=== PATIENT | male | born 1995 | race Two or more races ===

== ENCOUNTER 2021-04-18 04:52 | Emergency (ER) | payer OTHER, SELFPAY ==
--- NOTE | ~2021-04-18 | CT_ITS ---
EXAMINATION: CT ABDOMEN AND PELVIS WITH CONTRAST CLINICAL INFORMATION: Periumbilical pain. Rule out appendicitis. COMPARISON: None TECHNIQUE: Multidetector volumetric images were obtained from the superior aspect of the liver through the pubic symphysis following administration 85 mL of Omnipaque 350 intravenous contrast. Sagittal and coronal reformatted images were obtained on the technologist's workstation. Oral contrast: No This CT examination was performed using dose optimization techniques as appropriate, variously including the following: *Automated exposure control *Adjustment of mA and/or kV according to patient size (this includes techniques or standardized protocols for targeted exams where dose is matched to indication/reason for exam; i.e. extremities or head) *Use of iterative reconstruction technique DLP: 571 mGy-cm FINDINGS: Visualized lung bases are well aerated. The liver demonstrates normal size, contour and attenuation. 3 mm hypodense focus within the inferior right hepatic lobe is too small to accurately characterize. The gallbladder is normal in appearance. The pancreas, spleen and adrenal glands are unremarkable. Symmetrically enhancing kidneys. There is no hydronephrosis bilaterally. Debris-filled stomach. Normal caliber loops of small and large bowel. Normal appendix. Normal caliber abdominal aorta. No retroperitoneal lymphadenopathy. The bladder is well-distended and normal in appearance. The prostate gland is normal in size. No gross free pelvic fluid. No inguinal lymphadenopathy. No acute osseous abnormality. CT/CT abdomen pelvis w con IMPRESSION: No CT evidence for acute abnormality within the abdomen or pelvis. Specifically, the appendix is normal in appearance. Fleischner guidelines were followed.
[2021-04-18 04:55] VITALS: BP 112/78; PULSE 78; RESP 16; O2SAT 98; BMI 25.9
--- NOTE | 2021-04-18 05:02 | ED.ABDPAIN ---
HPI - Abdominal Pain General Chief Complaint: Abdominal Pain Stated Complaint: abd pain Time Seen by Provider: 04/18/21 05:00 Source: patient Mode of arrival: EMS History of Present Illness HPI narrative: 25-year-old male without significant past medical history presents via EMS for what he describes is upper abdominal pain that awoke him from sleep and then patient had 3 episodes of nonbloody vomiting and 1 episode of diarrhea. Patient states that the pain persisted and then ?became too much? prompting him to call EMS. He denies fevers, but describes chills. Patient states he is still having a significant amount of discomfort that he describes as burning. Related Data Previous Rx's Medication Instructions Recorded omeprazole 40 mg capsule,delayed 40 mg PO DAILY #30 cap 04/18/21 release Allergies Allergy/AdvReac Type Severity Reaction Status Date / Time No Known Allergies Allergy Verified 04/18/21 04:55 Review of Systems Review of Systems Pertinent positives and negatives as stated in HPI 10 point review of systems is otherwise negative. PMFSH Past Medical History Source: nursing notes reviewed Social History Social History Alcohol intake: never Patient Tobacco Use Status: Never used Tobacco Use of substances other than those prescribed or required for medical reasons: No Advance Directives: No Physical Exam ED Vital Signs: Vital Signs - 24 hr 04/18/21 04:55 04/18/21 05:09 04/18/21 06:00 Temperature 98 F Pulse Rate 78 74 66 Respiratory Rate 16 16 15 Blood Pressure 112/78 134/80 111/59 L Pulse Oximetry 98 96 99 04/18/21 07:08 Temperature 97.8 F Pulse Rate 72 Respiratory Rate 16 Blood Pressure 115/63 Pulse Oximetry 98 BMI result Body Mass Index 25.9 VITAL SIGNS: Reviewed. GENERAL: Well developed, well nourished, in mild distress. HEAD: Normocephalic/atraumatic EYES: PERRLA, EOMI OROPHARYNX: no oral lesions noted, posterior pharynx clear LUNGS: Normal breath sounds. No adventitious sounds or accessory muscle use. SpO2<98> CARDIOVASCULAR: Regular rate and rhythm without noted murmurs ABDOMEN: Soft, significant periumbilical tenderness as well as tenderness at right lower quadrant, non-distended with bowel sounds. MUSCULOSKELETAL: No tenderness, deformities, or effusions noted on gross inspection. EXTREMITIES: No cyanosis, clubbing or edema. SKIN: Inspection of the skin reveals no rashes NEUROLOGIC: Alert and oriented x 4. Strength and sensation to light touch were grossly intact x 4. Course Course Course Narrative: 25-year-old male with history and clinical presentation most suggestive of gastritis but possible appendicitis or pancreatitis. Review of all investigations otherwise negative for acute findings and patient had complete resolution of his symptoms by treating for gastritis/acid reflux. He was given all results and discharged home on a course of omeprazole as well as dietary changes. MDM - Abdominal Pain Lab Data Result diagrams: 04/18/21 05:08 04/18/21 05:08 Labs: Lab Results 04/18/21 04/18/21 Range/Units 05:08 05:08 WBC 9.2 (4.8-10.8) X10*3/uL RBC 5.43 (4.60-5.80) X10*6/uL Hgb 15.5 (14.0-18.0) g/dl Hct 43.7 (42.0-52.0) % MCV 80.5 (80.0-98.0) fL MCH 28.5 (27.0-33.0) pg MCHC 35.5 (31.0-36.0) g/dl RDW 12.1 (11.0-16.0) % Plt Count 210 (160-400) X10*3/uL MPV 10.5 (9.4-12.4) fL Immature Gran % (Auto) 0.2 (0.0-0.4) % Neut % (Auto) 67.8 (45-73) % Lymph % (Auto) 20.0 (20-40) % Harding % (Auto) 7.8 (2-11) % Eos % (Auto) 3.8 (0-4) % Baso % (Auto) 0.4 (0-2) % Lymph # (Auto) 1.9 (1.2-4.9) X10*3/uL Harding # (Auto) 0.7 (0.1-1.2) X10*3/uL Eos # (Auto) 0.4 (0.0-0.4) X10*3/uL Baso # (Auto) 0.0 (0.0-0.2) X10*3/uL Abs Immat Gran (auto) 0.02 (0.00-0.03) X10*3/uL Absolute Neuts (auto) 6.3 (2.0-8.3) x10*3/uL Absolute Nucleated RBC 0.000 (0.0-0.012) X10*3/uL Nucleated RBC % (auto) 0.0 (0.0-0.2) /100WBC Sodium 142 (135-145) mmol/L Potassium 4.0 (3.3-5.1) mmol/L Chloride 104 (96-108) mmol/L Carbon Dioxide 30 H (22-29) mmol/L Anion Gap 12 (12-20) BUN 13 (9-16) mg/dL Creatinine 1.10 (0.5-1.4) mg/dL Estim Creat Clear Calc 101.7 Estimated GFR > 60 Random Glucose 100 (60-115) mg/dL Calcium 9.5 (8.4-10.2) mg/dL Total Bilirubin 0.7 (0.0-1.0) mg/dL AST 20 (5-37) U/L ALT 22 (0-40) U/L Alkaline Phosphatase 70 (39-117) U/L Total Protein 7.3 (6.5-8.0) g/dL Albumin 4.4 (3.5-5.0) g/dL Lipase 18 (8-78) U/L Discharge Plan Discharge Clinical Impression: Gastritis Patient Disposition: Home, Self-Care Instructions: Gastritis (ED), Diet for Stomach Ulcers and Gastritis (ED) Additional Instructions: Follow-up with your primary care provider. Return to the ER for worsening symptoms. Prescriptions: New omeprazole 40 mg capsule,delayed release(DR/EC) 40 mg PO DAILY Qty: 30 0RF
[2021-04-18 05:09] VITALS: BP 134/80; PULSE 74; RESP 16; O2SAT 96
[2021-04-18 05:13] LABS: Basophils Percent Auto 0.4 % (0-2); Eosinophils Absolute Auto 0.4 X10*3/uL (0.0-0.4); Eosinophils Percent Auto 3.8 % (0-4); Hematocrit 43.7 % (42.0-52.0); Hemoglobin 15.5 g/dl (14.0-18.0); Imm Gran Abs Auto 0.02 X10*3/uL (0.00-0.03); Imm Gran Pct Auto 0.2 % (0.0-0.4); Lymphocytes Absolute Auto 1.9 X10*3/uL (1.2-4.9); MANUAL DIFF FLAG NO; Mean Corpuscular HGB Conc 35.5 g/dl (31.0-36.0); Mean Corpuscular Hemoglobin 28.5 pg (27.0-33.0); Mean Corpuscular Volume 80.5 fL (80.0-98.0); Mean Platelet Volume 10.5 fL (9.4-12.4); Monocytes Absolute Auto 0.7 X10*3/uL (0.1-1.2); Monocytes Percent Auto 7.8 % (2-11); Neutrophils Absolute Auto 6.3 x10*3/uL (2.0-8.3); Neutrophils Percent Auto 67.8 % (45-73); Platelet Count 210 X10*3/uL (160-400); Red Blood Count 5.43 X10*6/uL (4.60-5.80); Red Cell Distribution Width 12.1 % (11.0-16.0); White Blood Count 9.2 X10*3/uL (4.8-10.8)
[2021-04-18] MEDS: ondansetron HCL 4 MG/2 ML VIAL IVPUSH (05:14)
[2021-04-18 05:30] LABS: Alanine Aminotransferase 22 U/L (0-40); Albumin Level 4.4 g/dL (3.5-5.0); Alkaline Phosphatase 70 U/L (39-117); Anion Gap 12 (12-20); Aspartate Amino Transferase 20 U/L (5-37); Bilirubin Total 0.7 mg/dL (0.0-1.0); Blood Urea Nitrogen 13 mg/dL (9-16); Calcium 9.5 mg/dL (8.4-10.2); Carbon Dioxide 30 mmol/L (22-29); Chloride 104 mmol/L (96-108); Creatinine Clr Calc Pharmacy 101.7; Estimated Glomerular Filt Rate > 60; Glucose Random 100 mg/dL (60-115); Lipase 18 U/L (8-78); Sodium 142 mmol/L (135-145); Total Protein 7.3 g/dL (6.5-8.0)
[2021-04-18 06:00] VITALS: BP 111/59; PULSE 66; RESP 15; TEMP 36.6; O2SAT 99
[2021-04-18] MEDS: Magnesium Hydrox/Alum Hydrox 30 ML ORAL.SUSP PO (06:08)
[2021-04-18] MEDS: Ketorolac Tromethamine 30 MG/ML VIAL 15 MG IVPUSH (06:08)
[2021-04-18] MEDS: Lidocaine HCl Viscous 2 % 15 ML SOLUTION 10 ML MUCOUS MEM (06:08)
[2021-04-18] MEDS: iohexoL 350 MG/ML 100 ML INFUS..BTL 85 ML IV (06:32)
[2021-04-18 07:08] VITALS: BP 115/63; PULSE 72; RESP 16; TEMP 36.6; O2SAT 98
== END 2021-04-18 07:46 | disposition home or self-care (01) ==
PROVIDERS: Emergency Provider Student in an Organized Health Care Education/Training Program
DX: K29.70 Gastritis, unspecified, without bleeding (principal); Z79.899 Other long term (current) drug therapy
CPT/HCPCS: 36415; 74177; 80053; 83690; 85025; 96365; 96366; 99285; J1885; J2405; Q9967